=== PATIENT | male | born 1995 | race Caucasian/White ===

== ENCOUNTER 2017-12-25 19:11 | Observation (INO) | payer BC ==
--- OUTSIDE RECORDS SUMMARY | 2017-12-25 19:22 | XMS REPORT ---
:1995 External Reference #:[id number] Author Organization [facility] Address [address] [place] [address] [place] [address] Phone [phone] Care Team Providers Name Role Phone Janee Milligan FNPC Primary Care Physician Unavailable Payers Type Date Identification Payment Subscriber Numbers Provider Health Maintenance Effective: Policy Number: [facility] ([facility] [place]) 09/20/2017 [id number] Lewis PayID: [id number] [address] [address] [place] [address] Problems Date Description Provider Status Onset: 11/26/2011 Crohn's disease of large bowel Doroteo Rubio MD Active Note: treated in [place]; Family History Date Family Member(s) Problem(s) Comments Father Hypertension as of 2017 no sequelae Social History Type Date Description Comments Lives With Alone Cigarette Use Never Smoked Cigarettes Smoking Patient has never smoked Exercise Type/Frequency Exercises regularly General Hx Text 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 At [place] 2020. As of Nov 2017 last [place] GI visit was summer 2016 - adult GI. Allergies, Adverse Reactions, Alerts Date Description Reaction Status Severity Comments 10/26/2017 NKDA active Medications Medication Date Status Form Strength Qnty SIG Indications Ordering Provider Remicade 10/18/ Active Solution 100mg 4unit Infuse 400mg Doroteo Woodall Rec s intravenously Ramiro, every 8 weeks. Doxycycline / Active Capsules 100mg 1 by mouth Unknown Monohydrate 0000 twice a day with food Vital Signs Date Vital Result Comment 12/14/2017 Height 77 inches 6'5" Weight 189.12 lb Heart Rate 67 /min BP Systolic 118 mmHg BP Diastolic 70 mmHg Pain Level 0 O2 % BldC Oximetry 100 % BMI (Body Mass Index) 22.4 kg/m2 10/26/2017 Heart Rate 77 /min BP Systolic 119 mmHg BP Diastolic 70 mmHg Respiratory Rate 17 /min Body Temperature 97.3 F O2 % BldC Oximetry 99 % Results Test Date Test Result H/L Range Note CBC Auto Diff 10/30/2017 White Blood Count 7.7 10^3/uL 3.5-10.8 Red Blood Count 4.83 10^6/uL 4.00-5.40 Hemoglobin 12.6 g/dL Low 14.0-18.0 Hematocrit 38 % Low 42-52 Mean Corpuscular Volume 79 fL Low 80-94 Mean Corpuscular Hemoglobin 26 pg Low 27-31 Mean Corpuscular HGB Conc 33 g/dL 31-36 Red Cell Distribution Width 15 % 10.5-15 Platelet Count 313 10^3/uL 150-450 Mean Platelet Volume 6.1 um3 Low 7.4-10.4 Abs Neutrophils 4.7 10^3/uL 1.5-7.7 Abs Lymphocytes 1.6 10^3/uL 1.0-4.8 Abs Monocytes 1.0 10^3/uL High 0-0.8 Abs Eosinophils 0.4 10^3/uL 0-0.6 Abs Basophils 0 10^3/uL 0-0.2 Abs Nucleated RBC 0 10^3/uL Granulocyte % 61.0 % 38-83 Lymphocyte % 21.0 % Low 25-47 Monocyte % 12.6 % High 0-7 Eosinophil % 4.8 % 0-6 Basophil % 0.6 % 0-2 Nucleated Red Blood Cells % 0.1 Comp Metabolic Panel 10/30/2017 Sodium 136 mmol/L 135-145 Potassium 4.1 mmol/L 3.5-5.0 Chloride 103 mmol/L 101-111 Co2 Carbon Dioxide 29 mmol/L 22-32 Anion Gap 4 mmol/L 2-11 Glucose 89 mg/dL 70-100 Blood Urea Nitrogen 12 mg/dL 6-24 Creatinine 0.87 mg/dL 0.67-1.17 BUN/Creatinine Ratio 13.8 8-20 Calcium 8.7 mg/dL 8.6-10.3 Total Protein 7.1 g/dL 6.4-8.9 Albumin 3.3 g/dL 3.2-5.2 Globulin 3.8 g/dL 2-4 Albumin/Globulin Ratio 0.9 Low 1-3 Total Bilirubin 0.30 mg/dL 0.2-1.0 Alkaline Phosphatase 69 U/L 34-104 Alt 14 U/L 7-52 Ast 15 U/L 13-39 Egfr Non- 111.9 >60 Egfr 135.4 >60 1 Laboratory test finding 10/30/2017 Ferritin 52.4 ng/mL 24-336 Vitamin B12 413 pg/mL 180-914 2 1 Because ethnic data is not always readily available, this report includes an eGFR for both -Americans and non- Americans. The National Kidney Disease Education Program (NKDEP) does not endorse the use of the MDRD equation for patients that are not between the ages of 18 and 70, are , have extremes of body size, muscle mass, or nutritional status, or are non- or non-. According to the National Kidney Foundation, irrespective of diagnosis, the stage of the disease is based on the level of kidney function: Stage Description GFR(mL/min/1.73 m(2)) 1 Kidney damage with normal or decreased GFR 90 2 Kidney damage with mild decrease in GFR 60-89 3 Moderate decrease in GFR 30-59 4 Severe decrease in GFR 15-29 5 Kidney failure <15 (or dialysis) 2 Normal Range 180 to 914 Indeterminate Range 145 to 180 Deficient Range <145 Procedures Date CPT Code Description Status 10/25/2017 69053 Biopsy Skin Lesion Single Completed Encounters Type Date Location Provider CPT E/M Dx Office Visit 11/07/2017 7:50a [facility] [place] [address] L02.424 L70.0 Office Visit 10/26/2017 8:15a [facility] Doroteo Rubio, [address] K50.111 Z79.899 L70.0 Office Visit 10/25/2017 3:40p [facility] [place] [address] L70.0 L30.9 Plan of Care No Information Available
[2017-12-25] MEDS ORDERED: Metoclopramide IV* 5 MG/ML 2 ML VIAL IV SLOW PU ONE (20:14)
--- NOTE | 2017-12-25 20:15 | ED ---
GI/ HPI - HPI Summary HPI Summary: Patient is a 22 y/o M w/ c/o bloody diarrhea, N/V, SOB and dizziness with some difficulty standing for long periods of time. Abdominal pain is denied. He states that diarrhea onset this morning at around 0700, other Sx onset shortly afterwards. PMHx of Crohn's disease, patient is seen by Dr. Rubio, who advised patient come to ED. Dr. Rubio wants patient admitted. Patient reports that he is on remicade, has infusions every 7-8 weeks. He notes he was supposed to receive his infusion tomorrow. Patient is not on steroids. He used to be on doxycycline for folliculitis but he has not been on this medication for a month. No PSHx is reported. Patient notes that he ate food today. On triage, pain is denied, nothing is reported to alleviate/aggravate Sx. Home medications and allergies are reviewed. - History of Current Complaint Chief Complaint: EDNauseaVomitDiarrh Stated Complaint: DIZZY/DIARRHEA Hx Obtained From: Patient Onset/Duration: Still Present Timing: Constant, Lasting Hours - onst 0700 Current Severity: None - pain denied Pain Intensity: 0 Location of Pain: Other - pain denied Associated Signs and Symptoms: Positive: Dizziness, Nausea, Vomiting, Diarrhea, Other: - SOB. Negative: Abdominal Pain Aggravating Factor(s): Nothing Alleviating Factor(s): Nothing - Allergy/Home Medications Allergies/Adverse Reactions: Allergies Allergy/AdvReac Type Severity Reaction Status Date / Time No Known Allergies Allergy Verified 12/25/17 20:04 Home Medications: Home Medications inFLIXimab* [Remicade*] 400 mg IV MONTHLY 12/25/17 [History Confirmed 12/25/17] PMH/Surg Hx/FS Hx/Imm Hx GI History: Reports: Hx Crohn's Disease Sensory History: Denies: Hx Legally Blind, Hx Deafness Opthamlomology History: Denies: Hx Legally Blind EENT History: Denies: Hx Deafness Infectious Disease History: No Infectious Disease History: Denies: Traveled Outside the [place] in Last 30 Days - Family History Known Family History: Negative: Blood Disorder - Social History Alcohol Use: None Substance Use Type: Reports: None Smoking Status (MU): Never Smoked Tobacco Review of Systems Positive: Shortness Of Breath Positive: Vomiting, Diarrhea - bloody , Nausea. Negative: Abdominal Pain Neurological: Other - dizziness All Other Systems Reviewed And Are Negative: Yes Physical Exam - Summary Physical Exam Summary: VITAL SIGNS: Reviewed. GENERAL: Patient is a well-developed and nourished male who is lying comfortable in the stretcher. Patient is not in any acute respiratory distress. HEAD AND FACE: No signs of trauma. No ecchymosis, hematomas or skull depressions. No sinus tenderness. EYES: PERRLA, EOMI x 2, No injected conjunctiva, no nystagmus. EARS: Hearing grossly intact. Ear canals and tympanic membranes are within normal limits. MOUTH: Oropharynx within normal limits. NECK: Supple, trachea is midline, no adenopathy, no JVD, no carotid bruit, no c- spine tenderness, neck with full ROM. CHEST: Symmetric, no tenderness at palpation LUNGS: Clear to auscultation bilaterally. No wheezing or crackles. CVS: Regular rate and rhythm, S1 and S2 present, no murmurs or gallops appreciated. ABDOMEN: Soft, non-tender. No signs of distention. No rebound no guarding, and no masses palpated. Bowel sounds are hyperactive. EXTREMITIES: FROM in all major joints, no edema, no cyanosis or clubbing. NEURO: Alert and oriented x 3. No acute neurological deficits. Speech is normal and follows commands. SKIN: Dry and warm Triage Information Reviewed: Yes Vital Signs On Initial Exam: Initial Vitals Temp Pulse Resp BP Pulse Ox 99.7 F 98 18 157/86 97 12/25/17 19:14 12/25/17 19:14 12/25/17 19:14 12/25/17 19:14 12/25/17 19:14 Vital Signs Reviewed: Yes Diagnostics - Vital Signs Vital Signs Temp Pulse Resp BP Pulse Ox 12/25/17 19:14 99.7 F 98 18 157/86 97 - Laboratory Result Diagrams: 12/25/17 20:23 12/25/17 20:23 Lab Statement: Any lab studies that have been ordered have been reviewed, and results considered in the medical decision making process. GIGU Course/Dx - Course Course Of Treatment: Patient is a 22 y/o M w/ c/o bloody diarrhea, N/V, SOB and dizziness with some difficulty standing for long periods of time. Abdominal pain is denied. He states that diarrhea onset this morning at around 0700, other Sx onset shortly afterwards. PMHx of Crohn's disease, patient is seen by Dr. Rubio, who advised patient come to ED. Dr. Rubio wants patient admitted. Patient reports that he is on remicade, has infusions every 7-8 weeks. He notes he was supposed to receive his infusion tomorrow. Patient is not on steroids. He used to be on doxycycline for folliculitis but he has not been on this medication for a month. No PSHx is reported. Patient notes that he ate food today. On physical exam, patient is noted to have hyperactive bowel sounds. During ED course, patient received fluids and reglan 10 mg IV PSUH. Labs showed CRP 62.25, magnesium 1.8, calcium 8.4, lactic acid 0.5, glucose 97, INR 1.23, Hgb 11, Hct 33, MCV 78, MCH 26. Patient's case was discussed with Arnolod Johnson. Millicent Johnson accepts patient for admission. Dx of diarrhea and crohn's disease. - Diagnoses Provider Diagnoses: Diarrhea, Crohn's disease - Physician Notifications Discussed Care Of Patient With: Arnoldo Johnson Time Discussed With Above Provider: 20:50 Instructed by Provider To: Other - Patient's case was discussed with Arnoldo Johnson. Millicent Johnson accepts patient for admission. Discharge - Sign-Out/Discharge Documenting (check all that apply): Patient Departure - admit - Discharge Plan Condition: Good Disposition: ADMITTED TO [facility] Referrals: [facility] - Pierce OCHOA [Primary Care Provider] - - Attestation Statements Document Initiated by Scribe: Yes Documenting Scribe: Esa Marcial Provider For Whom Sherry is Documenting (Include Credential): Cole Hunter MD Scribe Attestation: Esa Mojica , scribed for Cole Hunter MD on 12/25/17 at 2057.
[2017-12-25 20:35] LABS: Hematocrit 33 % (42-52); Mean Corpuscular HGB Conc 33 g/dl (31-36); Mean Corpuscular Hemoglobin 26 pg (27-31); Mean Corpuscular Volume 78 fL (80-94); Platelet Count 334 10^3/ul (150-450); Red Blood Count 4.31 10^6/ul (4.00-5.40); Red Cell Distribution Width 15 % (10.5-15); White Blood Count 6.6 10^3/ul (3.5-10.8)
[2017-12-25 20:38] LABS: ABS Basophils 0 10^3/ul (0-0.2); ABS Eosinophils 0.2 10^3/ul (0-0.6); ABS Lymphocytes 1.9 10^3/ul (1.0-4.8); ABS Neutrophils 3.8 10^3/ul (1.5-7.7); ABS Nucleated RBC 0 10^3/ul; Eosinophil % 3.1 % (0-6); Lymphocyte % 27.8 % (25-47); Nucleated Red Blood Cells % 0.1
[2017-12-25 20:43] LABS: INR 1.23 (0.77-1.02)
[2017-12-25 20:47] LABS: EGFR Non-African American 113.4 (>60)
[2017-12-25] MEDS: NS 0.9% 1000 ML* 2,000 ML IV ONE ×2 (20:50→21:26)
[2017-12-25] MEDS ORDERED: Ondansetron INJ* 2 MG/ML VIAL IV PRN (21:09)
[2017-12-25] MEDS ORDERED: NS 0.9% 1000 ML* 1,000 ML IV ONE (21:09)
[2017-12-25] MEDS ORDERED: Acetaminophen TAB* 325 MG PO PRN (21:09)
[2017-12-25] MEDS ORDERED: Magnesium Sulfate 2 GM IV* 2 GM/50 ML BAG IVPB ONE (21:18)
[2017-12-25] MEDS ORDERED: methylPREDNISolone SOD 40 MG* 1 ML VIAL IV SCH (22:00)
[2017-12-25] MEDS: NS 0.9% 1000 ML* 1,000 ML IV SCH (22:25)
--- NOTE | 2017-12-25 23:33 | HP ---
AMENDED REPORT NOW INCLUDES COSIGNER DESIGNATION CC: [facility]; Dr. uRbio.* HISTORY AND PHYSICAL: DATE OF ADMISSION: 12/25/17 PRIMARY CARE PROVIDER: [facility]. CONSULTING DEDICATED DRIVER: Dr. Rubio. MY ATTENDING PHYSICIAN WHILE IN THE HOSPITAL: Valerie Lind MD * (report dictated by Padmini Johnson NP). CHIEF COMPLAINT: 1. Diarrhea. 2. Bloody diarrhea. HISTORY OF PRESENT ILLNESS: Mr. Saucedo is a 22-year-old male patient who has a history of Crohn's disease, has been getting Remicade infusions every [address] Rubio. He presents stating that he had an episode of bloody diarrhea this morning, it was watery. He had antibiotics treatment about 5 to 6 weeks ago. He finished in October. He denies any recent antibiotics and he says that he has not been having any fevers or chills or abdominal cramping. He had one episode and since having this episode of diarrhea, he has felt dizzy. He tried to get up to shower after having the diarrhea and he was so dizzy that he just wanted to lie back down. He felt fatigued. He laid down and tried to rest. He took in fluids. He felt better. He was able to get up and shower and took class, but even in class while taking a test, he could not focus. While walking to class, he just felt lightheaded. He did not feel like himself. He was getting short of breath with just exertion walk to the class. He denied any chest pain. No abdominal pain. He went back home early after class, tried hydrating, but he just still was not feeing better so he went to [facility] today. He had only the one episode according to the patient of bloody diarrhea this morning. He says in the last 2 days his stools had been soft. This is typical when his next Remicade is due, he typically gets softer stool. He denied having any again cramping. No chest pain, shortness of breath, again no abdominal pain. He went to [facility], he was sent here. There was concern for the bloody diarrhea, so we were asked to evaluate for admission. PAST MEDICAL HISTORY: Significant for Crohn's. PAST SURGICAL HISTORY: Denied. HOME MEDICATIONS: Include Remicade one injection every 7 to 8 weeks. ALLERGIES TO MEDICATIONS: No known drug allergies. FAMILY HISTORY: His mother he says is healthy. Father has high blood pressure. SOCIAL HISTORY: He does not smoke. He does not drink. Denies recreational drugs. He denies any alcohol use. He is a [employer] student, studying engineering. Surrogate decision maker is his parents. REVIEW OF SYSTEMS: There is no documented fever. He is denying having any significant weight change. He denies having any double vision. There is no ear discharge. Denies having any rhinorrhea. There is no sore throat. There is no thyroid enlargement. He denied having any chest pain. There is no orthopnea. There is nocturnal dyspnea. He denies having any abdominal pain. There was no nausea, vomiting. There is diarrhea with blood x1 today. He denies any loss of consciousness. No pruritus, no skin ulceration. Review of 14 systems completed, all others negative. PHYSICAL EXAMINATION GENERAL: At this time, Mr. Saucedo is a 22-year-old male patient. He appears to be well nourished, well developed. He is sitting in the ED stretcher. He does not appear to be in any acute distress. VITAL SIGNS: Blood pressure 157/86, pulse 9`8, respirations 18, O2 sat 97%, temperature 99.7. HEENT: Head: Atraumatic and normocephalic. Eyes: EOMs are intact. Sclerae anicteric and not pale. Throat: Oral mucosa appears to be moist. No oropharyngeal erythema. NECK: Supple. LUNGS: Clear to auscultation bilaterally. There were no wheezes, rales, or rhonchi. HEART: Sounds S1, S2. He had a regular rate and rhythm. He had no murmurs, rubs, or gallops. ABDOMEN: Soft. It was flat. It was nontender, nondistended. Bowel sounds were present. EXTREMITIES: Pulses were 2+ throughout. He is moving all 4 extremities with 5/ 5 strength. NEUROLOGICAL: He is awake. Hs alert. He is oriented x3. His tongue is midline. Security Representative are equal. He had no gross focal deficits. SKIN: Intact. DIAGNOSTIC STUDIES/LAB DATA: Labs today reveal a WBC of 6.6, RBC of 4.31, hemoglobin of 11, hematocrit 33, platelet count of 334. INR 1.23. PTT of 36.1. Sodium was 135, potassium 3.9, chloride 102, bicarb 26, BUN 14, creatinine 0.86, glucose 97, lactate 0.5, calcium 8.4, mag 1.8, total bili 0.3, AST 13, ALT 14, alk phos 53. CRP was 62, albumin normal. Old medical records were reviewed. ASSESSMENT AND PLAN: Mr. Saucedo is a 22-year-old male patient with a known history of Crohn's, coming into the ED today with complaints of bloody diarrhea with one episode today and he was having loose stools the last couple of days. He went to the [facility]. There was concern for Crohn's exacerbation. We were asked to evaluate for admission. He will be admitted under observation status for: 1. Crohn's exacerbation. Possible gastroenteritis and the etiology of this diarrhea is unclear. It could certainly be from his Crohn's given the bloody diarrhea, but he has only had one episode, which is reassuring. I did touch base with Dr. Rubio. He will be evaluating tomorrow. His abdominal exam is benign. I think we will check stool cultures. We will go ahead and put him on steroids. For the time being, we will hydrate him, place him on clears, and follow him clinically. If he has any deterioration, fevers, or worsening diarrhea, certainly low threshold for CT imaging. At this point, I am going to hold off, get GI to involve in his care and we will follow. 2. DVT prophylaxis. We will place him on SCDs. 3. Code status. Full code. 4. Fluids, electrolytes, and nutrition. I will replace his magnesium. In addition to this, I will also place him on clear liquid diet. TIME SPENT: On the admission was 60 minutes, greater than half the time spent face- to-face with the patient obtaining my history and physical, other half of the time spent going over the plan of care with the patient and implementing the plan of care. I did discuss the plan of care with my attending, Dr. Lind; he is in agreement. PADMINI JOHNSON NP [id number]/[facility] #: [id number] [facility] CENTERAna Maria
[2017-12-26 00:19] LABS: Hematocrit 30 % (42-52)
[2017-12-26 05:58] LABS: ABS Basophils 0 10^3/ul (0-0.2); ABS Eosinophils 0 10^3/ul (0-0.6); ABS Lymphocytes 0.9 10^3/ul (1.0-4.8); ABS Monocytes 0.1 10^3/ul (0-0.8); ABS Neutrophils 2.9 10^3/ul (1.5-7.7); ABS Nucleated RBC 0 10^3/ul; Eosinophil % 0.2 % (0-6); Hematocrit 31 % (42-52); Hemoglobin 10.3 g/dl (14.0-18.0); Lymphocyte % 22.9 % (25-47); Mean Corpuscular HGB Conc 33 g/dl (31-36); Mean Corpuscular Hemoglobin 25 pg (27-31); Mean Corpuscular Volume 77 fL (80-94); Mean Platelet Volume 6.1 fL (7.4-10.4); Nucleated Red Blood Cells % 0; Platelet Count 286 10^3/ul (150-450); Red Blood Count 4.04 10^6/ul (4.00-5.40); Red Cell Distribution Width 15 % (10.5-15); White Blood Count 3.9 10^3/ul (3.5-10.8)
[2017-12-26 06:18] LABS: EGFR Non-African American 134.8 (>60)
[2017-12-26] MEDS: NS 0.9% 1000 ML* 1,000 ML IV SCH (07:32)
[2017-12-26] MEDS ORDERED: methylPREDNISolone SOD 40 MG* 1 ML VIAL IV SCH (08:00)
[2017-12-26 10:52] VITALS: BP 103/50
--- NOTE | 2017-12-26 20:18 | CONS ---
GASTROENTEROLOGY CONSULT: DATE: 12/26/17 CONSULTING PHYSICIAN: Bhavna Guzman REASON FOR CONSULTATION: Rectal bleeding event massively the morning of in a 22-yr-old man on Remicade infusions for 7 or 8 years 400 mg HISTORY: This 22-year-old [employer] was diagnosed with Crohn's disease around 2011 in [place]. He is due for his 8-week 400 mg Remicade infusion today. As he has noticed in recent months in the week or two leading up to the infusion , he will have looser stools and may be some blood seen towards the end of the interval. He had commented on that at his last office followup on 10/26/17. 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 His appetite has been good and weight steady. His energy level has seemed okay. He has not previously had bloody stools. Yesterday morning at around 7 a.m., he had a large liquid bloody movement. He had a couple more smaller ones in the ensuing hour. He felt dizzy and weak and stayed in his room. He attempted to go an exam later in the day, but had difficulty walking. He went to [facility] and with orthostatic changes was transferred to the emergency room. Since coming to the emergency room, he has had no further stools overnight. There has been no nausea, vomiting, or fever. His labs in the ER initially showed hemoglobin 11.0, BUN 14, and overnight went down to 10.3 and 9. INR is 1.23, albumin 3.2 and CRP 62. He has not had any other episodes like this before. PAST MEDICAL HISTORY: Crohn's disease - initially presenting with diarrhea, weight loss. He was on Imuran for a year, but was not responding to it and went to Remicade, which he has been on right along. The dose of 400 mg has not changed in several years. MEDICATIONS: At home Remicade only. He is not taking any NSAIDs. ALLERGIES: None to drugs. FAMILY HISTORY: His father has high blood pressure. His mother is healthy. There is no family history of inflammatory bowel disease. SOCIAL HISTORY: He is from [place] originally. 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 He is a nonsmoker and does not use alcohol. REVIEW OF SYSTEMS: He had a lesion on his arm this summer, was biopsied by Dr. Bazan. There were no leg lesions. No history of fever, change in diet, vomiting, sore throat, cough, TB, hepatitis, jaundice, hematuria,. He did take doxycycline with the skin lesion that Dr. Bazan was treating. EXAM: He is slightly pale, slender young man, in no overt distress. He is afebrile, blood pressure 104/50, pulse 48. HEENT exam is unremarkable. He has no adenopathy. Lungs are clear and heart sounds are regular. Abdomen is symmetric, flat, normal bowel sounds, neither firm nor soft and without palpable abnormality. Nothing specifically is felt in the right lower quadrant. Extremities show no abnormality. IMPRESSION: This 22-year-old man diagnosed with Crohn's disease 7 or 8 years ago and treated in [place] with initially azathioprine and with no good response then switched to Remicade had been doing well. Over the last year, there has been some signs of diminishing control of loose stools. He had also had his hemoglobin and MCV falling slightly and his albumin similarly drifting lower from a baseline of 3.9 to 4.1 now down to 3.3 and 3.2. His CRP has been increasing. It is not clear if the loss of control is primary or secondary to an antibody. An infliximab level and possible antibody titer have been sent. Provisionally, he will be given short course of prednisone over 10 to 14 days and will receive his Remicade on schedule tomorrow. Application will begin to shorten the interval to 7 weeks and increase the dose to 500 mg though if an antibody is detected, a different strategy may be appropriate. [id number]/[facility] #: [id number] [facility]
--- NOTE | 2017-12-27 10:23 | DS ---
AMENDED REPORT NOW INCLUDES COSIGNER DESIGNATION CC: [facility] * DISCHARGE SUMMARY: DATE OF ADMISSION: 12/25/17 DATE OF DISCHARGE: 12/26/17 PRIMARY CARE PROVIDER: [facility]. ATTENDING PHYSICIAN: Dr. Denver Araujo * (dictated by Ginny Esquivel NP). PRIMARY DIAGNOSIS: Crohn's disease exacerbation. HISTORY OF PRESENT ILLNESS AND HOSPITAL COURSE: Mr. Saucedo is a 22-year-old male with past medical history of Crohn's disease who presented to the emergency room on 12/25/17 with complaints of bloody diarrhea. Please see the history and physical by Arnoldo Johnson NP, for a complete summary of the events leading up to this hospitalization; but in short, the patient has been receiving Remicade infusions every [address] to [address] Rubio with Gastroenterology. That morning, he had 1 episode of bloody diarrhea with associated dizziness and fatigue, which prompted him to come to the emergency room. In the emergency room, labs were essentially unremarkable, except for a CRP of 62. The patient was admitted by the hospitalist service for Crohn's exacerbation. The patient did well overnight. On the day of discharge, he denies any further diarrhea, no dizziness, no fatigue. He has been up ambulating in his room without difficulty. He has no abdominal pain or tenderness on palpation. He was seen in consultation by Dr. Rubio, who recommended the patient be discharged on a prednisone taper and recommended that he present to the infusion clinic today for his next dose of Remicade. Mr. Saucedo is stable for discharge today. Vital signs are as follows: Temp 97.8, heart rate 64, respiratory rate 17, oxygen saturation 100% on room air, blood pressure 103/50. DISCHARGE MEDICATIONS: New home medications: 1. Prednisone 5 mg p.o. taper 6 tabs for 2 days and 5 tabs for 2 days and 4 tabs for 2 days and 3 tabs for 2 days and 2 tabs for 2 days and 1 tab for 2 days. Continued home medications: 1. Remicade 400 mg intravenously every 8 weeks. DISCHARGE PLAN: Mr. Saucedo will be discharged back home. Activity will be as tolerated. Diet will be regular as tolerated. Medications are noted. The patient has been prescribed a prednisone taper to complete at home. The infusion center was unable to accommodate the patient today and so, the patient will present to the infusion center tomorrow for his Remicade. He should follow up with the [facility] [place] in 4 to 7 days. He has been advised to return to the nearest emergency room for any worsening of symptoms, shortness of breath, lightheadedness, dizziness, chest discomfort, high fevers, chills, night sweats, loss of consciousness, or any other worrisome signs or symptoms. This is a summarized report of a complex medical history and hospital stay. For further details, please see the entire medical record. TIME SPENT: Approximately 40 minutes were spent on this discharge, greater than half of that time spent [id number] with the patient discussing discharge plans and instructions. GINNY ESQUIVEL NP [id number]/[facility] #: [id number] [facility]
== END 2017-12-26 12:25 | disposition home or self-care (01) ==
LOC: ED 19:11 → MED 21:05
PROVIDERS: ADMIT Nurse Practitioner Family; ATTEND Internal Medicine
DX: K50.90 Crohn's disease, unspecified, without complications (principal); R42 Dizziness and giddiness; R11.2 Nausea with vomiting, unspecified; R19.7 Diarrhea, unspecified; R06.02 Shortness of breath
CPT/HCPCS: 36415; 80048; 80053; 80299; 83605; 83735; 85014; 85018; 85025; 85610; 85730; 86140; 96365; 96375; 99284; G0378; J2765; J2920; J3475